=== PATIENT | female | born 1950 | race Caucasian/White ===

== ENCOUNTER 2022-11-04 07:20 | Day surgery (SDC) | payer MEDICARE, SELFPAY ==
[2022-11-04] VITALS (43 sets, daily range): BP systolic 117–141; BP diastolic 52–75; PULSE 79–102; RESP 10–20; TEMP 37.1–37.9; O2SAT 91–98; BMI 24.1
[2022-11-04 07:58] LABS: Basophils Percent Auto 0.2 % (0.0-3.0); Hematocrit 40.5 % (33.0-51.0); Hemoglobin* 13.3 gm/dL (12.0-16.0); Immature Granulocytes Pct Auto 0.2 %; Lymphocytes Percent Auto 5.3 % (20-44); Mean Corpuscular HGB Conc 33 gm/dL (32-36); Mean Corpuscular Hemoglobin 33 pg (26-34); Mean Corpuscular Volume 100 fL (80-100); Monocytes Percent Auto 4.1 % (0.0-11.0); Neutrophils Percent Auto 90.2 % (42.0-72.0); Platelet Count* 183 K/uL (140-440); RDW Coefficient of Variation % 13.2 % (11.5-15.5); Red Blood Count 4.07 m/uL (4.00-5.20); White Blood Count* 11.77 K/uL (4.50-11.00)
[2022-11-04 08:01] LABS: Slide Review Reflex No
[2022-11-04 08:12] LABS: Albumin* 4.3 g/dL (3.3-5.0)
[2022-11-04 08:13] LABS: Chloride* 102 mmol/L (96-114); Potassium* 3.8 mmol/L (3.6-5.1); Sodium* 135 mmol/L (135-149)
--- NOTE | 2022-11-04 08:13 | ED_ITS ---
HPI - Abdominal Pain General Date Seen: 11/04/22 Chief Complaint: Abdominal Pain Stated Complaint: Abdominal pain, nausea, chills Time Seen by Provider: 11/04/22 07:52 Source: patient and family Mode of arrival: ambulatory Limitations: no limitations History of Present Illness HPI narrative: Patient is a 71-year-old female who presents here with a 24 hour period of or abdominal pain was more centralized yesterday, and now is more right lower quadrant, she says whenever she walks her on the drive over here she notices the bumps common causes her pain. She has felt a little bit chilled but no overt fever at home least not when she is taking it. She is also nauseated but has not vomited. She has had 1 loose stool, but no diarrhea. She denies any dysuria frequency associated with this. She is taking sips of water with her last this morning, she has not eaten any solid foods yesterday. She denies any significant back pain, cough, cold-like symptoms, runny nose, or rashes. Pre vious abdominal surgery include a laparoscopy for infertility, Medical history include hyperlipidemia and hypertension. Describes her pain as moderate, seem stoic Related Data Patient : No Home Medications Medication Instructions Recorded Confirmed aspirin 81 mg tablet,delayed 81 mg PO QDAY 08/03/22 08/03/22 release cholecalciferol (vitamin D3) 125 125 mcg PO QDAY 08/03/22 08/03/22 mcg (5,000 unit) capsule omega 9-dju-ppn-fish oil 100 cap PO 08/03/22 08/03/22 mg-160 mg-1,000 mg capsule (Fish Oil) Previous Rx's Medication Instructions Recorded losartan 100 1 tab PO QDAY #90 tabs 08/03/22 mg-hydrochlorothiazide 12.5 mg tablet rosuvastatin 10 mg tablet 10 mg PO QDAY #90 tabs 08/03/22 Allergies Allergy/AdvReac Type Severity Reaction Status Date / Time Penicillins Allergy Verified 08/03/22 14:25 Review of Systems Status of ROS Reports: 10 or more systems reviewed and unremarkable except as noted in History and below [facility] Medical History Benign hypertension ?I10 - Essential (primary) hypertension (ICD-10) Hx of cataract ?Z86.69 - Personal history of other diseases of the nervous system and sense organs (ICD-10) Mild hyperlipidemia ?E78.5 - Hyperlipidemia, unspecified (ICD-10) Normal colonoscopy Osteopenia ?M85.80 - Other specified disorders of bone density and structure, unspecified site (ICD-10) Prediabetes ?R73.03 - Prediabetes (ICD-10) Screening for breast cancer ?Z12.39 - Encounter for other screening for malignant neoplasm of breast (ICD-10) Screening mammogram for breast cancer ?Z12.31 - Encounter for screening mammogram for malignant neoplasm of breast (ICD-10) Surgical History (Updated 08/03/22 @ 14:59 by Maris Pérez MD) H/O cataract extraction ?Z98.49 - Cataract extraction status, unspecified eye (ICD-10) History of carpal tunnel surgery of right wrist ?Z98.890 - Other specified postprocedural states (ICD-10) Family History (Updated 08/03/22 @ 14:57 by Maris Pérez MD) Mother High blood pressure Father Lung cancer Coronary artery disease Sister Neuroendocrine cancer Coronary artery disease Social History Smoking Status: Former smoker Do you use any of these nicotine containing products: None Second hand tobacco smoke exposure: No How often do you have a drink containing alcohol: 2-4 times a month How many standard drinks containing alcohol do you have on a typical day: 3 or 4 How often do you have six or more drinks on one occasion: Monthly AUDIT-C Alcohol total score: 5 Non-prescribed substance use: denies use Little interest or pleasure in doing things: not at all Feeling down, depressed, or hopeless: not at all service: No Exam Narrative: Exam Narrative: Patient is speaking normally, no problem with slurring words, oriented x3. Head eyes ears nose and throat exam show equal pupils, no scleral icterus, extraocular muscles are normal, no facial droop, speech is normal, trachea normal and midline. Thyroid normal midline palpable not enlarged. Chest shows symmetrical rise bilaterally, normal auscultation with no wheezes, no increased work of breathing, no overt bruising or lesions seen, no tenderness is noted on auscultation. Heart sounds normal with no S3-S4 no murmurs clicks or gallops. Abdomen shows no obvious masses or hepatosplenomegaly, no organomegaly, bowel sounds are normal in all quadrants. Marked tenderness is noted in the right lower quadrant, localized, no peritoneal signs, bowel sounds are quiet.. Upper and lower extremities show normal power, normal range of motion, pulses are normal, sensations normal, fine motor movements are normal, pelvis is stable to rocking. Cervical spine shows normal range of motion, and palpably not tender. Thoracic spine shows normal range of motion, and palpably not tender, lumbar spine shows no tenderness to palpation percussion and is otherwise normal range of motion. Skin shows no rashes, petechiae or eccymosis. Const: Vital Signs, click to edit/add: Vital Signs - 24 hr 11/04/22 07:27 11/04/22 08:27 Temperature 99.4 F Pulse Rate [Pulse Oximeter] 102 H Respiratory Rate 20 Blood Pressure [Ri ght Upper Arm] 141/75 H Pulse Oximetry 94 Oxygen Delivery Me thod Room Air Documenting provider has reviewed patient's vital signs: yes Course Course Hospital Course: Discussed with the patient and the , that she has appendicitis, contacted from General surgery, she will see the patient, and take the patient to the operating room, she is ASA 1 for surgery, no medical complication foreseeable. Has had previous operations, with no complications. Medically cleared for the above case. Consultations Consultation #1: Consultation by phone with Dr. Segovia general surgery. Time: 10:03 Vital Signs Vital signs: Initial Vital Signs Temperature Source Temporal Artery Scan 11/04/22 07:27 Pulse Rate 102 H 11/04/22 07:27 Pulse Rhythm Regular 11/04/22 07:27 Respiratory Rate 20 11/04/22 07:27 Blood Pressure 141/75 H 11/04/22 07:27 Blood Pressure Mean 97 11/04/22 07:27 Blood Pressure Position Supine 11/04/22 07:27 Pulse Oximetry 94 11/04/22 07:27 Oxygen Delivery Method Room Air 11/04/22 07:27 Vital Signs Pulse Rate 102 H 11/04/22 07:27 Respiratory Rate 20 11/04/22 07:27 Blood Pressure 141/75 H 11/04/22 07:27 Pulse Oximetry 94 11/04/22 07:27 Oxygen Delivery Method Room Air 11/04/22 07:27 Temperature 99.4 F 11/04/22 08:27 Pulse Rate 102 H 11/04/22 07:27 Respiratory Rate 20 11/04/22 07:27 Blood Pressure 141/75 H 11/04/22 07:27 Pulse Oximetry 94 11/04/22 07:27 Oxygen Delivery Method Room Air 11/04/22 07:27 MDM - Abdominal Pain MDM Narrative Medical decision making narrative: During the evaluation of this patient I considered multiple differential diagnosis including life-threatening differentials which are appendicitis, aortic aneurysm, mesenteric ischemia, bowel perforation, ectopic , volvulus and bowel obstruction, other differential diagnosis include but are not limited to inflammatory bowel disease, cholecystitis, pancreatitis, hepatitis, gastritis, GERD, diverticulitis, peptic ulcer disease, pyelonephritis/UTI, renal colic/stone, pelvic inflammatory disease, cervicitis, endometritis, intrauterine , dysfunctional uterine bleeding, ovarian cyst/torsion, spontaneous as well as other etiologies Medical Records Attestation: I reviewed the patient's medical records. Lab Data Attestation: I reviewed the patient's lab results. Labs: Lab Results 11/04/22 11/04/22 11/04/22 Range/Units 07:42 07:45 08:12 WBC 11.77 H (4.50-11.00) K/uL RBC 4.07 (4.00-5.20) m/uL Hgb 13.3 (12.0-16.0) gm/dL Hct 40.5 (33.0-51.0) % MCV 100 (80-100) fL MCH 33 (26-34) pg MCHC 33 (32-36) gm/dL RDW Coeff of Jomar 13.2 (11.5-15.5) % Plt Count 183 (140-440) K/uL Neut % (Auto) 90.2 H (42.0-72.0) % Lymph % (Auto) 5.3 L (20-44) % Bradford % (Auto) 4.1 (0.0-11.0) % Eos % (Auto) 0.0 (0.0-7.0) % Baso % (Auto) 0.2 (0.0-3.0) % Neut # (Auto) 10.60 H (1.7-7.0) K/uL Lymph # (Auto) 0.60 L (0.90-2.90) K/uL Bradford # (Auto) 0.50 (0.00-0.90) K/UL Eos # (Auto) 0.00 (0.00-0.50) K/uL Baso # (Auto) 0.00 (0.00-0.30) K/uL Sodium 135 (135-149) mmol/L Potassium 3.8 (3.6-5.1) mmol/L Chloride 102 (96-114) mmol/L Carbon Dioxide 24 (20-32) mmol/L BUN 19 (7-30) mg/dL Creatinine 0.9 (0.5-1.5) mg/dL Estimated Creat Clear 43.92 Estimated GFR 69 ml/min Glucose 132 H (60-115) mg/dL Calcium 9.4 (8.4-10.6) mg/dL Total Bilirubin 2.0 H (0.1-1.5) mg/dL Direct Bilirubin 0.3 (0.0-0.5) mg/dL AST 25 (12-35) U/L ALT 25 (4-35) U/L Alkaline Phosphatase 81 (40-150) U/L C-Reactive Protein 2.8 H (0.5-1.0) mg/dL Total Protein 7.4 (6.0-8.3) g/dL Albumin 4.3 (3.3-5.0) g/dL Lipase 37 (23-300) U/L Urine Color Yellow (Yellow) Urine Appearance Clear (Clear) Urine pH 5.5 (5.0-8.5) Ur Specific [place] >= 1.030 (1.000-1.030) Urine Protein Negative (Negative) Urine Glucose (UA) Negative (Negative) Urine Ketones 1+ A (Negative) Urine Blood Trace-intact A (Negative) Urine Nitrite Negative (Negative) Urine Bilirubin 1+ A (Negative) Urine Urobilinogen 0.2 (0.2-1.0) Ur Leukocyte Esterase Negative (Negative) Urine RBC 0-2 (0-2) Urine WBC 0-2 (0-5) Ur Squamous Epith Cells Moderate A (None-Few) Urine Bacteria None (None) Fine Granular Casts Few A (None) Imaging Data CT scan - abdomen: Attestation: I have reviewed the pertinent imaging results. My impression: Appendicitis with mild pair appendiceal stranding. No evidence of perforation or abscess formation. Radiologist's impression: In agreement with abovePatient: NORI FONSECA Facility:?[facility] Patient ID:?[id number] Site Patient ID:?[id number]. Site :?[id number] Study:?CT Abdomen/Pelvis W/IV CONTRAST-11/04/2022 9:20:52 AM Ordering Physician:Ami Ace Final Report: Indication: Right lower quadrant abdominal pain, tenderness, appendicitis versus diverticulitis Technique: Volumetric multidetector CT images of the abdomen and pelvis were obtained after the administration of intravenous contrast. 67 cc low osmolar intravenous contrast Comparison: None available. Findings: There is dependent basilar atelectasis and parenchymal scar. There is demonstration of a hypodense mass lesion within the inferior right liver with minimal peripheral nodular enhancement likely representing a large meningioma. Additional subcentimeter hypodensities within the superior right liver are appreciated. The portal vein is patent. The gallbladder is unremarkable without evidence of radiopaque calculus. There is no significant common biliary ductal dilatation or abrupt cut off. The spleen is normal in enhancement and size. There is mild thickening of the gastric antrum with minimal gastric mucosal hyperemia. There is a small hiatal hernia. The pancreas is normal in enhancement without significant atrophy. The adrenal glands are unremarkable. The kidneys demonstrate preserved corticomedullary differentiation without evidence of obstructive uropathy. There is fluid filled colon and distal small bowel with normal mucosal hyperemia. There is a dilated fluid-filled appendix measuring 1 point 8 centimeters in greatest dimension with moderate periappendiceal inflammatory change. There is no significant mesenteric, retroperitoneal, or pelvic sidewall lymph nodes. The aorta is nonaneurysmal. There is no significant atherosclerotic disease appreciated. The solid pelvic viscera are grossly unremarkable. There is no free fluid or free air. There is a small fat containing umbilical hernia. The lumbar vertebral body heights are grossly maintained with endplate Schmorl`s defects. There is moderate to severe scoliotic deformity of the AP alignment. Impression: Demonstration of a dilated, fluid-filled appendix with moderate periappendiceal inflammatory change consistent with appendicitis. No evidence of rim enhancing fluid collection or rupture. Moderate superimposed fluid within distal small bowel loops and proximal colon likely representing minimal enterocolitis. Incidental note made of hemangiomas within the liver. Small hiatal hernia. Findings discussed with Db Brandon at 9:48 a.m. 11/04/[address] note that all CT scans at this facility use dose modulation, iterative reconstruction, and/or weight-based dosing when appropriate to reduce radiation dose to as low as reasonably achievable. Dictated by Arron Sanchez MD @ 11/04/2022 9:51:35 AM (Electronic Signature) Discharge Plan Discharge Clinical Impression: History of chronic hypertension, Acute appendicitis Patient Disposition: XFER to OR Condition: Stable Prescriptions: No Action Fish Oil 100-160-1,000 mg capsule PO cholecalciferol (vitamin D3) 125 mcg (5,000 unit) capsule 125 mcg PO QDAY aspirin 81 mg tablet,delayed release (DR/EC) 81 mg PO QDAY losartan-hydrochlorothiazide 100-12.5 mg tablet 1 tab PO QDAY Qty: 90 3RF rosuvastatin 10 mg tablet 10 mg PO QDAY Qty: 90 3RF Follow Up/Referrals: Maris Pérez MD [Primary Care Provider] -
[2022-11-04 08:15] LABS: Alkaline Phosphatase* 81 U/L (40-150); Aspartate Amino Transferase* 25 U/L (12-35); Bilirubin Direct* 0.3 mg/dL (0.0-0.5); Blood Urea Nitrogen* 19 mg/dL (7-30); Carbon Dioxide* 24 mmol/L (20-32); Creatinine* 0.9 mg/dL (0.5-1.5); Est. Creatinine Clearance* 43.92; Estimated Glomerular Filt Rate 69 ml/min; Glucose* 132 mg/dL (60-115); Total Protein* 7.4 g/dL (6.0-8.3)
[2022-11-04 08:16] LABS: Alanine Aminotransferase* 25 U/L (4-35); Calcium* 9.4 mg/dL (8.4-10.6); Lipase* 37 U/L (23-300)
[2022-11-04] MEDS: ONDANSETRON 2 MG/ML inj 4 MG IVP (08:21)
[2022-11-04] MEDS: HYDROmorphone 0.5 mg/0.5 ml inj IVP (08:21)
[2022-11-04] MEDS: 0.9 % SODIUM CHLORIDE 1000 ml 1,000 ML IV (08:21)
[2022-11-04 08:35] LABS: Appearance Urine Clear (Clear); Bilirubin Urine 1+ (Negative); Blood Urine Trace-intact (Negative); Color Urine Yellow (Yellow); Glucose Urine Negative (Negative); Ketones Urine 1+ (Negative); Leukocyte Esterase Urine Negative (Negative); Nitrite Urine Negative (Negative); Protein Urine Negative (Negative); Specific Gravity Urine >= 1.030 (1.000-1.030); Urobilinogen Urine 0.2 (0.2-1.0); pH Urine 5.5 (5.0-8.5)
[2022-11-04 08:35] LABS: C Reactive Protein* 2.8 mg/dL (0.5-1.0)
[2022-11-04 08:50] LABS: Fine Granular Casts Urine Few; RBC Urine 0-2 (0-2); Squamous Epithelial Cell Urine Moderate (None-Few); WBC Urine 0-2 (0-5)
[2022-11-04 10:22] LABS: SARS PCR* Negative SARS-CoV-2 (Negative)
[2022-11-04] MEDS: CEFOXITIN IVPB (10:30)
[2022-11-04] MEDS: SODIUM CHLORIDE MINI 0.9% IVPB (10:30)
--- NOTE | 2022-11-04 10:50 | W.ANESCHARGE ---
Anesthesia Charges Start Date/Time Anesthesia Start Date: 11/04/22 Anesthesia Start Time: 11:48 Stop Date/Time Anesthesia Stop Date: 11/04/22 Anesthesia Stop Time: 13:09 Summary Emergency: MDA
[2022-11-04] MEDS: CEFAZOLIN 1 GM inj IVP (11:55)
[2022-11-04] MEDS: BUPIVACAINE 0.25% 30 ML 13 ML INJECTION (12:45)
[2022-11-04] MEDS: LACTATED RINGERS 1000 ML 1,000 ML 100 ML IV (13:00)
--- NOTE | 2022-11-04 13:12 | P.ANES_ITS ---
Anesthesia Charges Start Date/Time Anesthesia Start Date: 11/04/22 Anesthesia Start Time: 11:48 Stop Date/Time Anesthesia Stop Date: 11/04/22 Anesthesia Stop Time: 13:09 Summary Emergency: [employer]
--- NOTE | 2022-11-04 13:29 | PM.GSHP ---
History of Present Illness History of Present Illness Date Seen: 11/04/22 Chief complaint: Abdominal pain, nausea, chills Narrative: Dennys Otto is a 71 year old female who presents to the emergency department with abdominal pain for the last day. She woke up with pain across her abdomen yesterday morning. Around 1:00 p.m. she had to lay down and the pain got worse and moved to her right lower quadrant. Has had nausea with this but no vomiting. She has had loose bowel movement since yesterday. She has not had any chest pain or shortness of breath. She has not had pain with urination. She has never had pain like this before. The pain was worse in the car ride over and has helped somewhat with pain medication. [facility] Medical History Benign hypertension ?I10 - Essential (primary) hypertension (ICD-10) Hx of cataract ?Z86.69 - Personal history of other diseases of the nervous system and sense organs (ICD-10) Mild hyperlipidemia ?E78.5 - Hyperlipidemia, unspecified (ICD-10) Normal colonoscopy Osteopenia ?M85.80 - Other specified disorders of bone density and structure, unspecified site (ICD-10) Prediabetes ?R73.03 - Prediabetes (ICD-10) Screening for breast cancer ?Z12.39 - Encounter for other screening for malignant neoplasm of breast (ICD-10) Screening mammogram for breast cancer ?Z12.31 - Encounter for screening mammogram for malignant neoplasm of breast (ICD-10) Surgical History (Updated 08/03/22 @ 14:59 by Maris Pérez MD) H/O cataract extraction ?Z98.49 - Cataract extraction status, unspecified eye (ICD-10) History of carpal tunnel surgery of right wrist ?Z98.890 - Other specified postprocedural states (ICD-10) Family History (Updated 08/03/22 @ 14:57 by Maris Pérez MD) Mother High blood pressure Father Lung cancer Coronary artery disease Sister Neuroendocrine cancer Coronary artery disease Social History Smoking Status: Former smoker Do you use any of these nicotine containing products: None Second hand tobacco smoke exposure: No How often do you have a drink containing alcohol: 2-4 times a month How many standard drinks containing alcohol do you have on a typical day: 3 or 4 How often do you have six or more drinks on one occasion: Monthly AUDIT-C Alcohol total score: 5 Non-prescribed substance use: denies use Little interest or pleasure in doing things: not at all Feeling down, depressed, or hopeless: not at all service: No Meds Home Medications and Allergies Home Medications Medication Instructions Recorded Confirmed Type aspirin 81 mg tablet,delayed 81 mg PO QDAY 08/03/22 08/03/22 History release cholecalciferol (vitamin D3) 125 125 mcg PO QDAY 08/03/22 08/03/22 History mcg (5,000 unit) capsule omega 2-ylx-hdg-fish oil 100 cap PO 08/03/22 08/03/22 History mg-160 mg-1,000 mg capsule (Fish Oil) Allergies Allergy/AdvReac Type Severity Reaction Status Date / Time Penicillins Allergy Verified 08/03/22 14:25 Exam Narrative: Exam Narrative: General appearance: Alert, cooperative, and in no distress Eyes: PERRLA, eye lids clear, and sclera white Pulmonary: Clear to auscultation bilaterally Cardiovascular Heart: Regular rate and rhythm Gastrointestinal Abdominal: Scar the umbilicus. Small umbilical hernia noted. She is tender in the right lower quadrant with palpation and with rebound. Nondistended. Musculoskeletal: Extremities: Upper: Both upper extremities have normal joint range of motion and intact strength. Lower: Both lower extremities have normal joint range of motion and intact strength. Skin: Normal skin color, texture, and turgor. No rashes or lesions. Neurologic: No focal deficits Psychiatric: Alert, oriented, cooperative, normal affect. Const: Vital Signs, click to edit/add: Vital Signs - 24 hr 11/04/22 07:27 11/04/22 08:27 11/04/22 08:26 Temperature 99.4 F Pulse Rate 97 Pulse Rate [Pulse Oximeter] 102 H Respiratory Rate 20 Blood Pressure Blood Pressure [Ri ght Upper Arm] 141/75 H Pulse Oximetry 94 96 Oxygen Delivery Me thod Room Air 11/04/22 08:27 11/04/22 08:30 11/04/22 08:45 Temperature Pulse Rate 96 96 94 Pulse Rate [Pulse Oximeter] Respiratory Rate Blood Pressure 131/64 Blood Pressure [Ri ght Upper Arm] Pulse Oximetry 94 91 91 Oxygen Delivery Me thod 11/04/22 09:00 11/04/22 09:16 11/04/22 09:30 Temperature Pulse Rate 87 92 86 Pulse Rate [Pulse Oximeter] Respiratory Rate Blood Pressure Blood Pressure [Ri ght Upper Arm] Pulse Oximetry 92 94 94 Oxygen Delivery Me thod 11/04/22 09:45 11/04/22 10:00 11/04/22 10:01 Temperature Pulse Rate 83 90 90 Pulse Rate [Pulse Oximeter] Respiratory Rate Blood Pressure 126/73 Blood Pressure [Ri ght Upper Arm] Pulse Oximetry 93 96 96 Oxygen Delivery Me thod 11/04/22 10:15 11/04/22 10:30 11/04/22 10:45 Temperature Pulse Rate 84 92 83 Pulse Rate [Pulse Oximeter] Respiratory Rate Blood Pressure Blood Pressure [Ri ght Upper Arm] Pulse Oximetry 97 96 93 Oxygen Delivery Me thod 11/04/22 11:00 11/04/22 11:15 11/04/22 11:30 Temperature Pulse Rate 83 100 81 Pulse Rate [Pulse Oximeter] Respiratory Rate Blood Pressure Blood Pressure [Ri ght Upper Arm] Pulse Oximetry 95 95 96 Oxygen Delivery Me thod 11/04/22 13:16 11/04/22 11:31 11/04/22 11:32 Temperature Pulse Rate 90 79 85 Pulse Rate [Pulse Oximeter] Respiratory Rate 10 L Blood Pressure 124/59 L Blood Pressure [Ri ght Upper Arm] Pulse Oximetry 94 95 95 Oxygen Delivery Me thod Room Air 11/04/22 11:33 11/04/22 11:34 11/04/22 11:35 Temperature Pulse Rate 96 85 85 Pulse Rate [Pulse Oximeter] Respiratory Rate Blood Pressure Blood Pressure [Ri ght Upper Arm] Pulse Oximetry 95 98 95 Oxygen Delivery Me thod 11/04/22 11:36 11/04/22 11:37 11/04/22 11:38 Temperature Pulse Rate 85 87 88 Pulse Rate [Pulse Oximeter] Respiratory Rate Blood Pressure Blood Pressure [Ri ght Upper Arm] Pulse Oximetry 95 96 96 Oxygen Delivery Me thod 11/04/22 11:39 11/04/22 11:40 11/04/22 11:41 Temperature Pulse Rate 81 82 81 Pulse Rate [Pulse Oximeter] Respiratory Rate Blood Pressure Blood Pressure [Ri ght Upper Arm] Pulse Oximetry 97 97 95 Oxygen Delivery Me thod 11/04/22 13:09 11/04/22 13:10 11/04/22 13:11 Temperature 98.7 F Pulse Rate 97 97 94 Pulse Rate [Pulse Oximeter] Respiratory Rate 12 Blood Pressure 121/57 L Blood Pressure [Ri ght Upper Arm] Pulse Oximetry 94 92 94 Oxygen Delivery Me thod Room Air 11/04/22 13:12 11/04/22 13:13 11/04/22 13:14 Temperature Pulse Rate 93 92 92 Pulse Rate [Pulse Oximeter] Respiratory Rate 14 Blood Pressure 124/59 L Blood Pressure [Ri ght Upper Arm] Pulse Oximetry 94 94 94 Oxygen Delivery Me thod Room Air 11/04/22 13:20 11/04/22 13:24 Temperature Pulse Rate 88 79 Pulse Rate [Pulse Oximeter] Respiratory Rate 12 10 L Blood Pressure 139/72 Blood Pressure [Ri ght Upper Arm] Pulse Oximetry 96 Oxygen Delivery Me thod Room Air Room Air Results Results Labs: White blood cell count is elevated at 11.7. Indirect bilirubin is 2.0. CRP is 2.8. Abdomen CT scan report/results: report reviewed and image reviewed Additional studies: CT of the abdomen and pelvis done today shows Impression: Demonstration of a dilated, fluid-filled appendix with moderate periappendiceal inflammatory change consistent with appendicitis. No evidence of rim enhancing fluid collection or rupture. Moderate superimposed fluid within distal small bowel loops and proximal colon likely representing minimal enterocolitis. Incidental note made of hemangiomas within the liver. Small hiatal hernia. Findings discussed with Db Brandon at 9:48 a.m. 11/04/22 Please note that all CT scans at this facility use dose modulation, iterative reconstruction, and/or weight-based dosing when appropriate to reduce radiation dose to as low as reasonably achievable. Dictated by Arron Sanchez MD @ 11/04/2022 9:51:35 AM Assessment and Plan Assessment and plan (1) Acute appendicitis: Status: Acute Plan The patient is a 71-year-old female with acute appendicitis. We discussed that appendectomy is the preferred treatment for this. This can most often be done laparoscopically. We discussed risks and benefits of the procedure including but not limited to bleeding, need for conversion to open, risk of injury to other structures, need for possible bowel resection, and abscess formation. The patient understands that the risk of abscess is higher if the appendix is perforated. For that reason, we generally keep patient is in the hospital on IV antibiotics until vital signs and white blood cell count had normalized. We also discussed recovery including 2 weeks of lifting restrictions. She is agreeable to proceed and we will plan on surgery emergently.
--- NOTE | 2022-11-04 13:32 | PM.GSPRC ---
Operative Note Date of procedure: 11/04/22 Pre-op diagnosis: Acute appendicitis Post-op diagnosis: Same Type of Procedure: Laparoscopic appendectomy Indications: The patient is a 71-year-old female who presented to the emergency department with 1 day of abdominal pain. She underwent workup and was found to have acute appendicitis without evidence of perforation on CT scan. I discussed that appendectomy is the preferred treatment for this and she agreed to proceed. Procedure Description: After discussing the risks and benefits of the procedure, the patient signed informed consent.? The operative site was marked and the patient was brought to the operating room and placed on the operating table in supine position.? Care was taken to pad the patient's pressure points.?? The patient was then intubated by anesthesia.?? The operative site was then prepped and draped in the usual sterile fashion.? A time-out was then performed. Entrance to the abdomen was obtained via a 5 mm optical trocar in the left upper quadrant. The abdomen was insufflated and briefly surveyed for any signs of injury. There were none. A 12 mm port was placed inferior to the umbilicus as well as a 5 mm port in the left lower quadrant. Both were done under direct vision. The patient was then placed in Trendelenburg position with the right side up. The small bowel was gently moved out of the way and the appendix was in view. It was markedly inflamed and encased in periappendiceal fat making somewhat difficult to discern whether was the true appendix or inflamed fat. There was no evidence of perforation but there was a small amount of cloudy fluid in the area. There was also inflammation of the cecum however, I was able to see the base of the appendix easily and so I grasped the mass of inflamed fat that appeared to contain the appendix and pulled into view. A mesenteric window was created between the base of the appendix and the mesoappendix. An Endo-VITALIY purple load stapler was then used to transect the appendix at its base. A vascular load stapler was then used to divide the mesoappendix. The staple lines were inspected for bleeding. There was a small amount of clot on the cecal staple line and therefore I placed a 5 mm clip on this to ensure hemostasis. The appendix was then removed from the abdomen using an Endo-Catch bag. I did examine the specimen on the back table to ensure that the appendix had been removed intact and indeed was present, encased in periappendiceal fat inflammation. The specimen was sent to pathology. The ports were removed and the abdomen desufflated. The 12 mm port site fascia was closed with 0 Vicryl. The skin was then closed with absorbable subcuticular suture. I noticed as I was closing the last site that after injecting local anesthetic around the left upper quadrant incision, the patient had developed what appeared to be a superficial hematoma. I examined the wound and there was no ongoing bleeding. I felt that this was likely superficial as it had not been present before and local anesthetic and I also so had, just before desufflating, examined the left upper quadrant port before removing it to ensure that there was no bleeding. The hematoma measured approximately 3 x 6 cm. This was monitored for 5-10 minutes and did not appear to be growing. Again there was no ongoing bleeding from the incision. The wound was then closed. Sterile dressings were then applied. A pressure dressing was placed over the left upper quadrant incision. Instrument sponge and needle counts were correct at the end of the case. The patient was then woken and transported to the PACU in stable condition. ? The patient tolerated the procedure well. Findings: Acute non perforated appendicitis Anesthesia: JIM Surgeon: Yas Segovia MD Estimated blood loss (mL): 10 Specimen: Appendix Condition: stable Disposition: PACU
[2022-11-04] MEDS: HYDROCODONE-ACETAMIN 5-325 MG 1 TAB PO (14:42)
== END 2022-11-04 14:45 | disposition home or self-care (01) ==
LOC: ED 10:16 → SS 11:42
PROVIDERS: Family Medicine; Emergency Provider Family Medicine; PCP Emergency Medicine; Visit Provider Surgery
PROC: 0DTJ4ZZ Resection of Appendix, Percutaneous Endoscopic Approach (ICD-10-PCS; CPT 44970; principal; 2022-11-04 12:00)
DX: K35.80 Unspecified acute appendicitis (principal); I10 Essential (primary) hypertension
CPT/HCPCS: 44970; 36415; 74177; 80048; 80076; 81001; 83690; 840; 85025; 86140; 87635; 88304; 93005; 99140; 99284; 99285; A9270; J0330; J0690; J0694; J1170; J2250; J2405; J2704; J3010; J3490; J7030; J7120; Q9967

== ENCOUNTER 2023-01-17 19:03 | Outpatient (CLI) | payer MEDICARE, SELFPAY | END 2023-01-17 19:04 | disposition home or self-care (01) | PROVIDERS: PCP Emergency Medicine; Visit Provider Emergency Medicine | DX: I10 Essential (primary) hypertension (principal); R73.03 Prediabetes; E78.5 Hyperlipidemia, unspecified | CPT/HCPCS: 80048; 80061 ==

== ENCOUNTER 2023-01-26 14:12 | Outpatient (CLI) | payer MEDICARE, SELFPAY ==
--- NOTE | 2023-01-26 14:30 | CRLHL7_ITS ---
For Patients: As a result of the Century Cures Act, medical imaging exams and procedure reports are released immediately into your electronic medical record. You may view this report before your referring provider. If you have questions, please contact your health care provider. DXA BONE MINERAL DENSITY STUDY Reason for exam: Low Bone Density. Current height (in): 62. Weight (lb): 136. Menopause age: 47. Ethnicity: White. 1. Have you had a previous hip or vertebral fracture? No. 2. Have you had any fractures during your adult life which did not result from significant trauma (e.g., auto accident)? No. 3. Did either of your parents have a hip fracture? No. 4. Do you smoke? No. 5. Have you ever taken Glucocorticoids? No. 6. Do you have rheumatoid arthritis? No. 7. Do you have secondary osteoporosis? No. 8. Do you drink 3 or more alcoholic drinks per day? No. 9. Are you being treated for osteoporosis? No. 10. Have you ever taken any of the following medications: Actonel, Evista, Fosamax, Miacalcin, Reclast, Boniva, Forteo, HRT (i.e. estrogen/hormone therapy), Protelos, Prolia, Vitamin D, Calcium, other ??? please specify. ANSWER: Vitamin D, calcium. 11. Do you have any of the following medical conditions: Anorexia or bulimia, asthma or emphysema, end stage renal disease, hyperparathyroidism, any seizure disorders, cancer, inflammatory bowel diseases, hysterectomy, other ??? please specify. ANSWER: No. 12. What was your maximum height (inches)? 63. 13. Do you perform weight bearing exercise regularly? No. 14. Do you regularly consume dairy products? Yes. 15. Do you drink caffeinated beverages? Yes. 16. At what age did your period start? 16. 17. Are you premenopausal? No. 18. How many full term pregnancies have you had? 1. 19. Have you ever missed your period for more than 6 months in a row (not including or menopause)? No. TECHNIQUE: Bone mineral density study was performed using the [employer] FINDINGS: The results of the study expressed as bone mineral density (BMD) are as follows: Lumbar spine L1, L4: BMD: 0.975 g/cm2. T-score: -0.6. Z-score: 1.5. Neck Left: BMD: 0.708 g/cm2. T-score: -1.3. Z-score: 0.5. Right: BMD: 0.706 g/cm2. T-score: -1.3. Z-score: 0.5. Total Left: BMD: 0.912 g/cm2. T-score: -0.2. Z-score: 1.3. Right: BMD: 0.946 g/cm2. T-score: 0.0. Z-score: 1.5. IMPRESSION: Osteopenia. *Comparison exams done prior to 12/2019 were performed on different unit, [employer]. FRAX 10-year Fracture Risk Major Osteoporotic Fracture: 9.6 percent Hip Fracture: 1.2 percent Reported Risk Factors: [place] () Neck BMD=0.706, BMI=24.9 Luis Hansen M.D. Diagnostic/Nuclear Medicine Radiologist [email or web address] ABIEL/Dictated by: Luis Hansen MD @ 01/27/2023 11:53:00 AM (Electronically Signed)
--- NOTE | 2023-01-26 15:00 | CRLHL7_ITS ---
For Patients: As a result of the Cures Act, medical imaging exams and procedure reports are released immediately into your electronic medical record. You may view this report before your referring provider. If you have questions, please contact your health care provider. INDICATION: Right carotid bruit. COMPARISON: None. TECHNIQUE: The carotid circulations and the vertebral arteries in the neck were examined with campos-scale ultrasound, color-flow and Doppler spectral analysis. Degrees of stenosis were determined using SRU 2002 Consensus Panel Criteria. FINDINGS: Sonographic images demonstrates minimal atherosclerotic plaque within the left CCA and distal ICA. There is no evidence of suspicious soft tissue mass. There is antegrade blood flow demonstrated within the vertebral arteries and the subclavian arteries demonstrate a normal triphasic waveform. The spectral Doppler tracings of the common carotid, internal and external carotid arteries demonstrate no abnormal turbulence or spectral broadening. There was no significant elevation of peak systolic blood flow which would indicate a hemodynamically significant stenosis by NASCET criteria. The ICA/CCA peak systolic velocity ratio measures 1.2 on the right and 1.3 on the left. IMPRESSION: Minimal atherosclerotic plaque left CCA/distal left ICA. Otherwise normal carotid ultrasound. Dictated by Luis Hansen MD @ 01/27/2023 11:35:39 AM (Electronically Signed)
== END 2023-01-26 14:13 | disposition home or self-care (01) ==
LOC: RAD 14:13
PROVIDERS: PCP Emergency Medicine; Visit Provider Emergency Medicine
DX: R09.89 Other specified symptoms and signs involving the circulatory and respiratory systems (principal); I65.22 Occlusion and stenosis of left carotid artery; M85.80 Other specified disorders of bone density and structure, unspecified site
CPT/HCPCS: 77080; 93880

== ENCOUNTER 2023-12-20 14:53 | Outpatient (CLI) | payer MEDICARE, SELFPAY ==
--- OUTSIDE RECORDS SUMMARY | 2023-12-20 14:57 | XMS_ITS | Clinical Summary ---
Author Organization [place] Address [facility] [place] [address] Care Team Providers Care Sales Account Manager Name Role Phone Becki Valentine MD Primary Care Provider Social History Tobacco Use Types Packs/Day Years Used Date Smoking Tobacco: Never Assessed Adolescent Education Answer Date Record ed Getting School Help Needed Not on file 04/10 Sex and Gender Information Value Date Recorded Sex Assigned at Not on file Gender Identity Not on file Sexual Orientation Not on file Plan of Treatment Health Maintenance Due Date Last Done Comments ADVANCE CARE PLANNING 1950 ANNUAL REVIEW OF HM ORDERS 1952 CT COLONOGRAPHY 1952 DEXA 1952 FIT 1952 FLEX SIG 1952 GLUCOSE 1952 sDNA (Cologuard) 1952 COLONOSCOPY 1962 COLORECTAL CANCER SCREENING 1962 HEPATITIS C SCREENING 1970 LIPID 1992 ZOSTER IMMUNIZATION (1 of 2) 2002 RSV VACCINE ( & 60+) (1 - 1-dose 60+ series) 2012 FALL RISK ASSESSMENT 2017 MEDICARE ANNUAL WELLNESS VISIT 2017 Pneumococcal Vaccine: 65+ Years (2 of 2 - PPSV23 or PCV20) 06/25/2020 06/25/2019 DTAP/TDAP/TD IMMUNIZATION (2 - Td or Tdap) 05/21/2022 05/21/2012 COVID-19 Vaccine (4 - 2023-24 season) 2023 06/17/2021, 10/08/2020, 09/11/2020 PHQ-2 (once per calendar year) 2023 MAMMO SCREENING 2023 11/16/2021, 02/0 08/2020, 06/25/2019, Additional history exists INFLUENZA VACCINE (Season Ended) 2024 06/17/2021, 04/14/2020, 05/09/2019, Additional history exists HPV IMMUNIZATION Aged Out No longer e ligible based on patient's age to complete this topic IPV IMMUNIZATION Aged Out No longer e ligible based on patient's age to complete this topic MENINGITIS IMMUNIZATION Aged Out No l onger eligible based on patient's age to complete this topic RSV MONOCLONAL ANTIBODY Aged Out No l onger eligible based on patient's age to complete this topic Procedures Procedure Name Priority Date/Time Associated Diagnosis Comments MA SCREENING DIGITAL BILATERAL Routine 11/16/2021 9:15 AM CDT Visit for screening mammogram from Last 3 Months or Most Recently Relevant to Health Maintenance Results * MA Screening Digital Bilateral (11/16/2021 9:15 AM CDT) Anatomical Region Laterality Modality Breast Bilateral Mammography Narrative 11/16/2021 1:35 PM CDT BILATERAL FULL FIELD DIGITAL SCREENING MAMMOGRAM Performed on: 11/16/21 Compared to: 08/11/2020, 06/25/2019, 05/21/2018, and 03/24/2017 Technique: This study was evaluated with the assistance of Computer-Aided Detection. Findings: The breasts are heterogeneously dense, which may obscure small masses. ??There is no radiographic evidence of malignancy. IMPRESSION: ACR BI-RADS Category 1: Negative RECOMMENDED FOLLOW-UP: Annual routine screening mammogram The results and recommendations of this examination will be communicated to the patient. Becki Valentine MD IMG MAMMOGRAPHY [facility] from Last 3 Months or Most Recently Relevant to Health Maintenance Care Teams Sales Account Manager Relationship Specialty Start Date End Date Becki Valentine MD PCP - General Family Practice 11/18/13
--- OUTSIDE RECORDS SUMMARY | 2023-12-20 14:57 | XMS_ITS | Referral Summary ---
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
== END 2023-12-20 14:54 | disposition home or self-care (01) ==
PROVIDERS: PCP Emergency Medicine; Visit Provider Emergency Medicine
DX: Z00.00 Encounter for general adult medical examination without abnormal findings (principal); E78.5 Hyperlipidemia, unspecified; R73.03 Prediabetes; I10 Essential (primary) hypertension; R71.8 Other abnormality of red blood cells
CPT/HCPCS: 80053; 80061; 82607

== ENCOUNTER 2024-02-22 14:25 | Outpatient (CLI) | payer MEDICARE, SELFPAY ==
--- NOTE | 2024-02-22 14:40 | CRLHL7_ITS ---
For Patients: As a result of the Century Cures Act, medical imaging exams and procedure reports are released immediately into your electronic medical record. You may view this report before your referring provider. If you have questions, please contact your health care provider. BILATERAL SCREENING MAMMOGRAM WITH COMPUTER-AIDED DETECTION AND TOMOSYNTHESIS TECHNIQUE: CC and MLO views were obtained. These mammographic images have been obtained using full-field digital technique. These mammographic images were interpreted with the benefit of computer-aided detection. Breast Tomosynthesis was used in this interpretation. COMPARISON FILM: 11/23/22, 11/16/21, 08/11/20. FINDINGS: The breasts are heterogeneously dense, which may obscure small masses. IMPRESSION: There is no radiographic evidence for malignancy. ASSESSMENT: BI-RADS Category 1: Negative RECOMMENDATION: Routine screening mammogram in 1 year. A lay language report of this examination will be provided to the patient. John Ricks M.D. Diagnostic Radiologist [email or web address] SP/Dictated by: John Ricks MD @ 02/23/2024 9:43:00 AM (Electronically Signed)
== END 2024-02-22 14:26 | disposition home or self-care (01) ==
LOC: MAMMO 14:25
PROVIDERS: PCP Emergency Medicine; Visit Provider Emergency Medicine
DX: Z12.31 Encounter for screening mammogram for malignant neoplasm of breast (principal); R92.2 Inconclusive mammogram
CPT/HCPCS: 77063; 77067

== ENCOUNTER 2025-02-06 10:00 | Outpatient (CLI) | payer MEDICARE, SELFPAY | END 2025-02-06 10:01 | disposition home or self-care (01) | LOC: NFLDREF 02-10 16:37 | PROVIDERS: PCP Emergency Medicine; Referring Provider Emergency Medicine; Visit Provider Emergency Medicine | DX: E78.5 Hyperlipidemia, unspecified (principal); I10 Essential (primary) hypertension; M85.80 Other specified disorders of bone density and structure, unspecified site; Z79.899 Other long term (current) drug therapy | CPT/HCPCS: 80053; 80061; 82607 ==

== ENCOUNTER 2025-02-20 13:17 | Outpatient (CLI) | payer MEDICARE, SELFPAY ==
--- NOTE | 2025-02-20 13:30 | CRLHL7_ITS ---
For Patients: As a result of the Cures Act, medical imaging exams and procedure reports are released immediately into your electronic medical record. You may view this report before your referring provider. If you have questions, please contact your health care provider. XR DXA Bone Mineral Density (BMD) Reason for exam: Screening for osteoporosis. Current height (inches): 62.0 Weight (lbs.): 130.0 Menopause age: 47 Ethnicity: White 1. Have you had a previous hip or vertebral fracture? No. 2. Have you had any fractures during your adult life which did not result from significant trauma (e.g., auto accident)? No. 3. Did either of your parents have a hip fracture? No. 4. Do you smoke? No. 5. Have you ever taken Glucocorticoids? No. 6. Do you have rheumatoid arthritis? No. 7. Do you have secondary osteoporosis? No. 8. Do you drink 3 or more alcoholic drinks per day? No. 9. Are you being treated for osteoporosis? No. 10. Have you ever taken any of the following medications: Actonel, Evista, Fosamax, Miacalcin, Reclast, Boniva, Forteo, HRT (i.e., estrogen/hormone therapy), Protelos, Prolia, Vitamin D, Calcium, other ??? please specify. ANSWER: Yes; vitamin D and calcium. 11. Do you have any of the following medical conditions: Anorexia or bulimia, asthma or emphysema, end stage renal disease, hyperparathyroidism, any seizure disorders, cancer, inflammatory bowel diseases, hysterectomy, other ??? please specify. ANSWER: No. 12. What was your maximum height (inches)? 63. 13. Do you perform weightbearing exercise regularly? No. 14. Do you regularly consume dairy products? Yes. 15. Do you drink caffeinated beverages? Yes. 16. At what age did your period start? 16. 17. Are you premenopausal? No. 18. How many full-term pregnancies have you had? 1. 19. Have you ever missed your period for more than 6 months in a row (not including or menopause)? No. TECHNIQUE: Bone mineral density study was performed using the [employer]. FINDINGS: The results of the study expressed as bone mineral density (BMD) are as follows: Lumbar Spine L1 and L4: BMD: 0.993 g/cm2. T-score: -0.4. Z-score: 1.8. Neck Left: BMD: 0.685 g/cm2. T-score: -1.5. Z-score: 0.4. Right: BMD: 0.752 g/cm2. T-score: -0.9. Z-score: 1.0. Total Left: BMD: 0.899 g/cm2. T-score: -0.4. Z-score: 1.3. Right: BMD: 0.970 g/cm2. T-score: 0.2. Z-score: 1.9. IMPRESSION: Osteopenia. COMPARISON: Compared with scan of 01/26/2023, the bone mineral density has increased by 1.9% at the spine and increased by 0.5% at the hip. *Comparison exams done prior to 12/2019 were performed on different unit, [employer]. FRAX 10-year Fracture Risk Major Osteoporotic Fracture: 10% Hip Fracture: 1.6% Reported Risk Factors: [place] () Neck BMD = 0.685, BMI = 23.8. JOHN JAUREGUI M.D. Diagnostic Radiologist [email or web address] Transcribed: 4:[address]/Dictated by: John Jauregui MD @ 02/20/2025 3:39:00 PM (Electronically Signed)
== END 2025-02-20 13:18 | disposition home or self-care (01) ==
PROVIDERS: PCP Physician Assistant Medical; Visit Provider Emergency Medicine
DX: Z13.820 Encounter for screening for osteoporosis (principal); M85.89 Other specified disorders of bone density and structure, multiple sites
CPT/HCPCS: 77080

== ENCOUNTER 2025-06-02 10:26 | Outpatient (CLI) | payer MEDICARE, SELFPAY ==
--- NOTE | 2025-06-02 10:45 | CRLHL7_ITS ---
For Patients: As a result of the Century Cures Act, medical imaging exams and procedure reports are released immediately into your electronic medical record. You may view this report before your referring provider. If you have questions, please contact your health care provider. INDICATION: BILATERAL SCREENING MAMMOGRAM, ASYMPTOMATIC 74 Y/O FEMALE COMPARISON: 02/22/2024, 11/23/2022, 11/16/2021 TECHNIQUE: Digital mammogram in CC and MLO projections including computer-aided detection (CAD) and tomosynthesis. BREAST COMPOSITION: The breasts are heterogeneously dense, which may obscure small masses. FINDINGS: No suspicious findings. ASSESSMENT: BI-RADS 1 Negative RECOMMENDATION: Annual screening mammogram. A lay language report of this examination will be provided to the patient. Dictated by: Jesi Brock MD @ 06/03/2025 09:20:24 (Electronically Signed)
== END 2025-06-02 10:27 | disposition home or self-care (01) ==
LOC: MAMMO 10:26
PROVIDERS: PCP Physician Assistant Medical; Visit Provider Physician Assistant Medical
DX: Z12.31 Encounter for screening mammogram for malignant neoplasm of breast (principal); R92.333 Mammographic heterogeneous density, bilateral breasts
CPT/HCPCS: 77063; 77067